=== PATIENT | female | born 1960 | race Hispanic/Latino ===

== ENCOUNTER 2018-12-20 10:25 | Inpatient (IN) | payer MEDICARE ==
[2018-12-20] MEDS ORDERED: GEODON IM PRN (14:37)
[2018-12-20] MEDS ORDERED: ZOFRAN IM PRN (14:38)
[2018-12-20] MEDS: ROXICODONE PO PRN ×2 (15:23→21:43)
[2018-12-20] MEDS: LEXAPRO PO SCH (15:24)
[2018-12-20 16:32] LABS: Basophils % (Auto) 0.4 % (0.0-1.8); Eosinophils % (Auto) 0.1 % (0.0-4.3); Hematocrit 48.1 % (30.3-42.9); Hemoglobin 16.2 gm/dl (10.1-14.3); Lymphocytes # (Auto) 1.6 K/mm3 (1.2-5.4); Lymphocytes % (Auto) 18.2 % (13.4-35.0); Mean Corpuscular HGB Conc 34 % (30-34); Mean Corpuscular Volume 89 fl (79-97); Monocytes # (Auto) 0.6 K/mm3 (0.0-0.8); Monocytes % (Auto) 7.3 % (0.0-7.3); Platelet Count 142 K/mm3 (140-440); Red Blood Count 5.39 M/mm3 (3.65-5.03); Red Cell Distribution Width 14.3 % (13.2-15.2)
[2018-12-20 16:52] LABS: Albumin 4.3 g/dL (3.9-5); Calcium 9.1 mg/dL (8.4-10.2)
[2018-12-20 17:06] LABS: Chol/HDL Ratio 2.93 %
[2018-12-20] MEDS: CATAPRES-TTS PATCH TD SCH ×2 (18:56→21:39)
[2018-12-20] MEDS ORDERED: DESYREL PO SCH (22:00)
[2018-12-21] MEDS: LEXAPRO PO SCH (10:22)
[2018-12-21] MEDS: ROXICODONE PO PRN (10:24)
--- NOTE | 2018-12-21 13:15 | History and Physical Report ---
GP History & Physical - History of Present Illness Date of admission: 12/20/18 Date of Examination: 12/21/18 Reason for Admission: Danger to self, Severe anxiety/depression Chief Complaint: Depressed, anxious and suicidal History of Present Illness: The patient is a 58yo disabled, female with history of MDD, Anxiety, Chronic pain and Fibromylgia. She was transferred from [facility] with c/o feeling very anxious, nervous and thoughts of suicide. In my interview with the patient today, she endorses feeling depressed and anxious, relates her feelings to chronic pain. She attends [facility], where she is prescribed Methadone 10mg bid, Percocet 5/325mg x 2 q6h and Clonazepam 0.5mg bid. She wants to continue on these medications. She denies hallucinations, paranoia or homicidal thoughts. Legal Status: Voluntary Patient Problems: Current Active Problems MDD (major depressive disorder), recurrent episode, severe (Acute) Reaction to Hospitalization: Accepting Medications and Allergies Allergies Allergy/AdvReac Type Severity Reaction Status Date / Time ciprofloxacin [From Cipro] Allergy Unknown Verified 12/20/18 00:47 NSAIDS (Non-Steroidal AdvReac Intermediate ABDOMINAL Verified 12/20/18 01:45 Anti-Inflamma PAIN butorphanol [From Stadol] AdvReac Unknown Verified 12/20/18 01:45 cephalexin [From Keflex] AdvReac STOMACH Verified 12/20/18 01:45 PAIN clarithromycin [From Biaxin] AdvReac PAIN Verified 12/20/18 01:45 desipramine AdvReac Vomiting Verified 12/20/18 01:45 droperidol [From Inapsine] AdvReac MUSCLE Verified 12/20/18 01:45 SPASM LOWER EXTREMITIES metoclopramide [From Reglan] AdvReac MUSCLE Verified 12/20/18 01:45 SPASMS milnacipran [From Savella] AdvReac MOOD Verified 12/20/18 01:45 ALTERATION morphine AdvReac Hives Verified 12/20/18 01:45 nalbuphine [From Nubain] AdvReac MUSCLE Verified 12/20/18 01:45 SPASMS nortriptyline AdvReac THOUGHTS Verified 12/20/18 01:45 OF SUICIDE pregabalin [From Lyrica] AdvReac MOOD Verified 12/20/18 01:45 ALTERATION prochlorperazine AdvReac MUSCLE Verified 12/20/18 01:45 [From Compazine] SPASMS tramadol AdvReac TREMORS Verified 12/20/18 01:45 ziprasidone [From Geodon] AdvReac MUSCLE Verified 12/20/18 01:45 SPASMS Home Medications Medication Instructions Recorded Confirmed Last Taken Type Escitalopram Oxalate [Lexapro] 20 mg PO HS 12/20/18 12/20/18 12/18/18 History 20 mg Klonopin 0.5 mg PO BID PRN 12/20/18 12/20/18 12/19/18 History 0.5mg Marinol 2.5 mg PO TID 12/20/18 12/20/18 12/20/18 History 2.5 Methadone 10 mg PO BID 12/20/18 12/20/18 12/19/18 History 10 mg Ondansetron (Nf) [Zofran TAB] 8 mg PO Q8HR PRN 12/20/18 12/20/18 12/20/18 History 8 mg oxyCODONE 1 tab PO QID PRN MDD 1 tab 12/20/18 12/20/18 12/19/18 History 1 tab traZODone 150 mg PO QHS 12/20/18 12/20/18 12/17/18 History 150 Active Meds: Active Medications Clonazepam (Klonopin) 0.5 mg PO BID [facility] Last Admin: 12/21/18 10:22 Dose: 0.5 mg Documented by: Clonidine HCl (Catapres-Tts Patch) 0.1 mg TD Sa [facility] Last Admin: 12/20/18 21:39 Dose: 0.1 mg Documented by: Escitalopram Oxalate (Lexapro) 20 mg PO QDAY [facility] Last Admin: 12/21/18 10:22 Dose: 20 mg Documented by: Hydroxyzine Pamoate (Vistaril) 50 mg PO Q6H PRN PRN Reason: Anxiety Ondansetron HCl (Zofran) 4 mg IM Q8H PRN PRN Reason: nausea Last Admin: 12/21/18 10:23 Dose: 4 mg Documented by: Oxycodone HCl (Roxicodone) 5 mg PO Q8H PRN PRN Reason: Pain, Moderate (4-6) Last Admin: 12/21/18 10:24 Dose: 5 mg Documented by: Trazodone HCl (Desyrel) 50 mg PO QHS [facility] Last Admin: 12/20/18 21:39 Dose: 50 mg Documented by: Ziprasidone (Geodon) 20 mg IM Q4H PRN PRN Reason: Agitation Substance History - Substance History Drug Use: none Hx Tobacco Use: No Alcohol Use: No Past psychiatric history - Past Medical History Past Medical History: other (Chronic pain) - past Psychiatric treatment and history Psych: Anxiety, Depression - Social History Social history: , Lives alone (disabled, has some college education, no legal problems and no gun access. ) Review of Systems All systems: negative Gastrointestinal: nausea Psychiatric: anxiety, suicidal ideation, depression Results - Results Labs/Vitals: Laboratory Last Values WBC 8.6 K/mm3 (4.5-11.0) 12/20/18 16:01 RBC 5.39 M/mm3 (3.65-5.03) H 12/20/18 16:01 Hgb 16.2 gm/dl (10.1-14.3) H 12/20/18 16:01 Hct 48.1 % (30.3-42.9) H 12/20/18 16:01 MCV 89 fl (79-97) 12/20/18 16:01 MCH 30 pg (28-32) 12/20/18 16:01 MCHC 34 % (30-34) 12/20/18 16:01 RDW 14.3 % (13.2-15.2) 12/20/18 16:01 Plt Count 142 K/mm3 (140-440) 12/20/18 16:01 Lymph % (Auto) 18.2 % (13.4-35.0) 12/20/18 16:01 Vance % (Auto) 7.3 % (0.0-7.3) 12/20/18 16:01 Eos % (Auto) 0.1 % (0.0-4.3) 12/20/18 16:01 Baso % (Auto) 0.4 % (0.0-1.8) 12/20/18 16:01 Lymph # 1.6 K/mm3 (1.2-5.4) 12/20/18 16:01 Vance # 0.6 K/mm3 (0.0-0.8) 12/20/18 16:01 Eos # 0.0 K/mm3 (0.0-0.4) 12/20/18 16:01 Baso # 0.0 K/mm3 (0.0-0.1) 12/20/18 16:01 Seg Neutrophils % 74.0 % (40.0-70.0) H 12/20/18 16:01 Seg Neutrophils # 6.4 K/mm3 (1.8-7.7) 12/20/18 16:01 Sodium 141 mmol/L (137-145) 12/20/18 16:01 Potassium 4.0 mmol/L (3.6-5.0) 12/20/18 16:01 Chloride 96.3 mmol/L (98-107) L 12/20/18 16:01 Carbon Dioxide 29 mmol/L (22-30) 12/20/18 16:01 Anion Gap 20 mmol/L 12/20/18 16:01 BUN 7 mg/dL (7-17) 12/20/18 16:01 Creatinine 1.0 mg/dL (0.7-1.2) 12/20/18 16:01 Estimated GFR 57 ml/min 12/20/18 16:01 BUN/Creatinine Ratio 7 % 12/20/18 16:01 Glucose 104 mg/dL (65-100) H 12/20/18 16:01 Calcium 9.1 mg/dL (8.4-10.2) 12/20/18 16:01 Total Bilirubin 0.40 mg/dL (0.1-1.2) 12/20/18 16:01 AST 25 units/L (5-40) 12/20/18 16:01 ALT 21 units/L (7-56) 12/20/18 16:01 Alkaline Phosphatase 156 units/L (35-129) H 12/20/18 16:01 Total Protein 8.0 g/dL (6.3-8.2) 12/20/18 16:01 Albumin 4.3 g/dL (3.9-5) 12/20/18 16:01 Albumin/Globulin Ratio 1.2 % 12/20/18 16:01 Triglycerides 161 mg/dL (2-149) H 12/20/18 16:01 Cholesterol 135 mg/dL (50-199) 12/20/18 16:01 LDL Cholesterol Direct 64 mg/dL (50-130) 12/20/18 16:01 HDL Cholesterol 46 mg/dL (40-59) 12/20/18 16:01 Cholesterol/HDL Ratio 2.93 % 12/20/18 16:01 Last Vital Signs Temp 98.7 F 12/21/18 08:15 Pulse 71 12/21/18 08:15 Resp 14 12/21/18 08:15 BP 153/102 12/21/18 08:15 Pulse Ox 94 12/21/18 08:15 Physical Examination - Constitutional Vitals: Vital Signs Temp Pulse Resp BP Pulse Ox 98.7 F 71 14 153/102 94 12/21/18 08:15 12/21/18 08:15 12/21/18 08:15 12/21/18 08:15 12/21/18 08:15 Temperature -Last 24 Hours Temperature 98.7 F Temperature 97.3 F General appearance: Present: no acute distress, well-nourished - EENT Eyes: Present: PERRL, EOM intact ENT: hearing intact, clear oral mucosa - Neck Neck: Present: supple, normal ROM - Respiratory Respiratory effort: normal Mental Status Exam - Vital signs Last Vital Signs Temp 98.7 F 12/21/18 08:15 Pulse 71 12/21/18 08:15 Resp 14 12/21/18 08:15 BP 153/102 12/21/18 08:15 Pulse Ox 94 12/21/18 08:15 - Exam Orientation: time, place, person Affect: depressed, anxious Mood: congruent with affect Thought Process: Intact Perceptions: none Speech: normal rate and pattern Concentration: focused Motor activity: restless Level of consciousness: alert Memory: Intact Sleep Symptoms: Difficulty Falling Asleep Interaction: cooperative Mini mental status exam(if necessary): 24-30 Assessment and Plan - Psychiatric problem (1) MDD (major depressive disorder), recurrent episode, severe Current Visit: Yes Status: Acute plan to address problem: Patient will be admitted for inpatient psychiatric evaluation, medication adjustment and close monitoring The patient's behavior, mood, sleep and appetite will be closely monitored. Patient will be enrolled in individual and group therapeutic sessions and encouraged to attend. Patient will be provided with a safe and structured environment. Patient's physical health needs will be addressed by the Hospitalist. Social Assessment will be completed and the Life Teacher will work with patient and family to ensure a suitable and safe disposition Medication adjustment will be made as clinically indicated The patient agreed on the treatment plan, understood the risk, benefit, alternative treatment, potential consequence of no treatment, and gave informed consent Physician Certification - Certification Statement Physician Certification Statement: This is an acknowledgement statement that VAUGHN HOOVER is a 58 year old F who requires inpatient psychiatric admission for treatment which could reasonably be expected to improve the patient's condition for Depression Estimated period of time patient will need to remain in the hospital: 7 days Plan for post-hospital care: Out-patient care
[2018-12-21] MEDS ORDERED: ZOFRAN ODT PO PRN (13:20)
[2018-12-21] MEDS: PERCOCET 5/325 PO PRN (17:03)
[2018-12-21] MEDS: VISTARIL PO PRN (17:03)
[2018-12-21] MEDS: DESYREL PO SCH (21:29)
[2018-12-21] MEDS: DOLOPHINE PO SCH (21:33)
[2018-12-21] MEDS ORDERED: NON-FORMULARY (Ondansetron (Nf) 8 MG) PO PRN (22:03)
[2018-12-21] MEDS ORDERED: KLONOPIN 0.5 MG PO PRN (22:03)
[2018-12-21] MEDS: COZAAR PO SCH (23:17)
[2018-12-22] MEDS: ZOFRAN ODT PO PRN ×2 (03:46→21:08)
--- NOTE | 2018-12-22 07:24 | Consultation ---
History of Present Illness - Reason for Consult Consult date: 12/21/18 Medical management Requesting physician: HALEY PINEDA - History of Present Illness The patient is a 58yo disabled, female with history of MDD, Anxiety, Chronic pain and Fibromylgia. She was transferred from [facility] with c/o feeling very anxious, nervous and thoughts of suicide. High BP for last 24 hours Not on any BP meds Past History Past Medical History: other (Chronic pain.Depression.,Anxiety) Past Surgical History: No surgical history Social history: , Lives alone (disabled, has some college education, no legal problems and no gun access. ) Family history: hypertension Medications and Allergies Allergies Allergy/AdvReac Type Severity Reaction Status Date / Time ciprofloxacin [From Cipro] Allergy Unknown Verified 12/20/18 00:47 NSAIDS (Non-Steroidal AdvReac Intermediate ABDOMINAL Verified 12/20/18 01:45 Anti-Inflamma PAIN butorphanol [From Stadol] AdvReac Unknown Verified 12/20/18 01:45 cephalexin [From Keflex] AdvReac STOMACH Verified 12/20/18 01:45 PAIN clarithromycin [From Biaxin] AdvReac PAIN Verified 12/20/18 01:45 desipramine AdvReac Vomiting Verified 12/20/18 01:45 droperidol [From Inapsine] AdvReac MUSCLE Verified 12/20/18 01:45 SPASM LOWER EXTREMITIES metoclopramide [From Reglan] AdvReac MUSCLE Verified 12/20/18 01:45 SPASMS milnacipran [From Savella] AdvReac MOOD Verified 12/20/18 01:45 ALTERATION morphine AdvReac Hives Verified 12/20/18 01:45 nalbuphine [From Nubain] AdvReac MUSCLE Verified 12/20/18 01:45 SPASMS nortriptyline AdvReac THOUGHTS Verified 12/20/18 01:45 OF SUICIDE pregabalin [From Lyrica] AdvReac MOOD Verified 12/20/18 01:45 ALTERATION prochlorperazine AdvReac MUSCLE Verified 12/20/18 01:45 [From Compazine] SPASMS tramadol AdvReac TREMORS Verified 12/20/18 01:45 ziprasidone [From Geodon] AdvReac MUSCLE Verified 12/20/18 01:45 SPASMS Home Medications Medication Instructions Recorded Confirmed Last Taken Type Escitalopram Oxalate [Lexapro] 20 mg PO HS 12/20/18 12/20/18 12/18/18 History 20 mg Klonopin 0.5 mg PO BID PRN 12/20/18 12/20/18 12/19/18 History 0.5mg Marinol 2.5 mg PO TID 12/20/18 12/20/18 12/20/18 History 2.5 Methadone 10 mg PO BID 12/20/18 12/20/18 12/19/18 History 10 mg Ondansetron (Nf) [Zofran TAB] 8 mg PO Q8HR PRN 12/20/18 12/20/18 12/20/18 History 8 mg oxyCODONE 1 tab PO QID PRN MDD 1 tab 12/20/18 12/20/18 12/19/18 History 1 tab traZODone 150 mg PO QHS 12/20/18 12/20/18 12/17/18 History 150 Active Meds: Active Medications Amlodipine Besylate (Norvasc) 5 mg PO QDAY [facility] Aspirin (Halfprin Ec) 81 mg PO QDAY [facility] Clonazepam (Klonopin) 0.5 mg PO BID [facility] Last Admin: 12/21/18 21:29 Dose: 0.5 mg Documented by: Clonazepam (Klonopin) 0.5 mg PO BID PRN PRN Reason: AGITATION Escitalopram Oxalate (Lexapro) 20 mg PO QHS [facility] Hydroxyzine Pamoate (Vistaril) 50 mg PO Q6H PRN PRN Reason: Anxiety Last Admin: 12/21/18 17:03 Dose: 50 mg Documented by: Losartan Potassium (Cozaar) 100 mg PO QDAY [facility] Last Admin: 12/21/18 23:17 Dose: 100 mg Documented by: Methadone HCl (Dolophine) 10 mg PO BID [facility] Last Admin: 12/21/18 21:33 Dose: 10 mg Documented by: Ondansetron HCl (Zofran Odt) 8 mg PO Q8H PRN PRN Reason: Nausea And Vomiting Last Admin: 12/22/18 03:46 Dose: 8 mg Documented by: Oxycodone/Acetaminophen (Percocet 5/325) 2 tab PO Q6H PRN PRN Reason: Pain, Moderate (4-6) Last Admin: 12/21/18 17:03 Dose: 2 tab Documented by: Trazodone HCl (Desyrel) 150 mg PO QHS [facility] Last Admin: 12/21/18 21:29 Dose: 150 mg Documented by: Review of Systems All systems: negative Musculoskeletal: other (Chronic pain) Exam - Constitutional Vitals: Temp Pulse Resp BP Pulse Ox 99 F 88 18 171/97 98 12/21/18 21:47 12/21/18 23:17 12/21/18 21:47 12/21/18 23:17 12/21/18 21:47 General appearance: Present: no acute distress, well-nourished - EENT Eyes: Present: PERRL ENT: hearing intact, clear oral mucosa - Neck Neck: Present: supple, normal ROM - Respiratory Respiratory effort: normal Respiratory: bilateral: CTA - Cardiovascular Heart Sounds: Present: S1 & S2. Absent: rub, click - Extremities Extremities: no ischemia, pulses intact, pulses symmetrical, No edema Peripheral Pulses: within normal limits - Abdominal General gastrointestinal: Present: soft, non-tender, non-distended, normal bowel sounds Female genitourinary: Present: normal - Integumentary Integumentary: Present: clear, warm, dry - Musculoskeletal Musculoskeletal: gait normal, strength equal bilaterally - Psychiatric Psychiatric: appropriate mood/affect, depressed - Neurologic Neurologic: CNII-XII intact, moves all extremities - Allied Health Allied health notes reviewed: nursing, case management Results - Labs CBC & Chem 7: 12/20/18 16:01 12/20/18 16:01 Labs: Abnormal lab results 12/21/18 Range/Units 16:53 POC Glucose 112 H (70-105) Assessment and Plan - Patient Problems (1) HTN (hypertension) Current Visit: Yes Status: Chronic Qualifiers: Hypertension type: essential hypertension Qualified Code(s): I10 - Essential (primary) hypertension Plan to address problem: New onset Initiated on Amlodipine and Losartan (2) MARIA ALEJANDRA (generalized anxiety disorder) Current Visit: Yes Status: Chronic Plan to address problem: Defer to Dr Pineda (3) MDD (major depressive disorder) Current Visit: Yes Status: Chronic Qualifiers: Active/Remission status: currently active Major depression episode severity: moderate Plan to address problem: As per Dr Pineda
[2018-12-22] MEDS: DOLOPHINE PO SCH ×2 (09:03→21:11)
[2018-12-22] MEDS: HALFPRIN EC PO SCH (09:03)
[2018-12-22] MEDS: COZAAR PO SCH (09:18)
[2018-12-22] MEDS: NORVASC PO SCH (09:18)
[2018-12-22] MEDS: PERCOCET 5/325 PO PRN (13:04)
[2018-12-22] MEDS: VISTARIL PO PRN (18:31)
[2018-12-22] MEDS: DESYREL PO SCH (21:10)
[2018-12-22] MEDS ORDERED: NON-FORMULARY (Escitalopram Oxalate [Lexapro] 20 MG) PO SCH (22:00)
[2018-12-22] MEDS ORDERED: LEXAPRO PO SCH (22:00)
[2018-12-23] MEDS: PERCOCET 5/325 PO PRN (07:15)
--- NOTE | 2018-12-23 07:58 | Progress Note ---
Subjective Date of service: 12/22/18 Principal diagnosis: Major depressive disorder Subjective Comment: Patient reports feeling better today. She does not want to come off Methadone, hence it was restarted last night. As she is back on Methadone for pain, she denies SI/HI/AVH/Paranoia. She is compliant with her medications and denies side effects. MSE Orientation: time, place, person Affect: Normal Mood: Improving Thought Process: Intact Perceptions: none Speech: normal rate and pattern Concentration: focused Motor activity: WNL Level of consciousness: alert Memory: Intact Sleep Symptoms: None Interaction: cooperative Objective - Criteria for Continued Treatment Criteria for Continued Treatment: Improving Level of Functioning, Stablizing Level of Functioning, Improving Emotional/Socia - Objective Observation Participation Level: Moderate Assessment and Plan - Patient Problems (1) MDD (major depressive disorder), recurrent episode, severe Current Visit: Yes Status: Acute Plan to address problem: Patient will be admitted for inpatient psychiatric evaluation, medication adjustment and close monitoring The patient's behavior, mood, sleep and appetite will be closely monitored. Patient will be enrolled in individual and group therapeutic sessions and encouraged to attend. Patient will be provided with a safe and structured environment. Patient's physical health needs will be addressed by the Hospitalist. Social Assessment will be completed and the Supervisor Beater Room will work with patient and family to ensure a suitable and safe disposition Medication adjustment will be made as clinically indicated The patient agreed on the treatment plan, understood the risk, benefit, alternative treatment, potential consequence of no treatment, and gave informed consent Medications and Allergies Allergies Allergy/AdvReac Type Severity Reaction Status Date / Time ciprofloxacin [From Cipro] Allergy Unknown Verified 12/20/18 00:47 NSAIDS (Non-Steroidal AdvReac Intermediate ABDOMINAL Verified 12/20/18 01:45 Anti-Inflamma PAIN butorphanol [From Stadol] AdvReac Unknown Verified 12/20/18 01:45 cephalexin [From Keflex] AdvReac STOMACH Verified 12/20/18 01:45 PAIN clarithromycin [From Biaxin] AdvReac PAIN Verified 12/20/18 01:45 desipramine AdvReac Vomiting Verified 12/20/18 01:45 droperidol [From Inapsine] AdvReac MUSCLE Verified 12/20/18 01:45 SPASM LOWER EXTREMITIES metoclopramide [From Reglan] AdvReac MUSCLE Verified 12/20/18 01:45 SPASMS milnacipran [From Savella] AdvReac MOOD Verified 12/20/18 01:45 ALTERATION morphine AdvReac Hives Verified 12/20/18 01:45 nalbuphine [From Nubain] AdvReac MUSCLE Verified 12/20/18 01:45 SPASMS nortriptyline AdvReac THOUGHTS Verified 12/20/18 01:45 OF SUICIDE pregabalin [From Lyrica] AdvReac MOOD Verified 12/20/18 01:45 ALTERATION prochlorperazine AdvReac MUSCLE Verified 12/20/18 01:45 [From Compazine] SPASMS tramadol AdvReac TREMORS Verified 12/20/18 01:45 ziprasidone [From Geodon] AdvReac MUSCLE Verified 12/20/18 01:45 SPASMS Home Medications Medication Instructions Recorded Confirmed Last Taken Type Escitalopram Oxalate [Lexapro] 20 mg PO HS 12/20/18 12/20/18 12/18/18 History 20 mg Klonopin 0.5 mg PO BID PRN 12/20/18 12/20/18 12/19/18 History 0.5mg Marinol 2.5 mg PO TID 12/20/18 12/20/18 12/20/18 History 2.5 Methadone 10 mg PO BID 12/20/18 12/20/18 12/19/18 History 10 mg Ondansetron (Nf) [Zofran TAB] 8 mg PO Q8HR PRN 12/20/18 12/20/18 12/20/18 History 8 mg oxyCODONE 1 tab PO QID PRN MDD 1 tab 12/20/18 12/20/18 12/19/18 History 1 tab traZODone 150 mg PO QHS 12/20/18 12/20/18 12/17/18 History 150 Active Meds: Active Medications Amlodipine Besylate (Norvasc) 5 mg PO QDAY [facility] Last Admin: 12/22/18 09:18 Dose: 5 mg Documented by: Aspirin (Halfprin Ec) 81 mg PO QDAY [facility] Last Admin: 12/22/18 09:03 Dose: 81 mg Documented by: Clonazepam (Klonopin) 0.5 mg PO BID [facility] Last Admin: 12/22/18 21:12 Dose: 0.5 mg Documented by: Clonazepam (Klonopin) 0.5 mg PO BID PRN PRN Reason: AGITATION Escitalopram Oxalate (Lexapro) 20 mg PO QHS [facility] Last Admin: 12/22/18 21:12 Dose: 20 mg Documented by: Hydroxyzine Pamoate (Vistaril) 50 mg PO Q6H PRN PRN Reason: Anxiety Last Admin: 12/22/18 18:31 Dose: 50 mg Documented by: Losartan Potassium (Cozaar) 100 mg PO QDAY [facility] Last Admin: 12/22/18 09:18 Dose: 100 mg Documented by: Methadone HCl (Dolophine) 10 mg PO BID [facility] Last Admin: 12/22/18 21:11 Dose: 10 mg Documented by: Ondansetron HCl (Zofran Odt) 8 mg PO Q8H PRN PRN Reason: Nausea And Vomiting Last Admin: 12/22/18 21:08 Dose: 8 mg Documented by: Oxycodone/Acetaminophen (Percocet 5/325) 2 tab PO Q6H PRN PRN Reason: Pain, Moderate (4-6) Last Admin: 12/23/18 07:15 Dose: 2 tab Documented by: Trazodone HCl (Desyrel) 150 mg PO QHS [facility] Last Admin: 12/22/18 21:10 Dose: 150 mg Documented by: Results - Results Labs/Vitals: Laboratory Last Values WBC 8.6 K/mm3 (4.5-11.0) 12/20/18 16:01 RBC 5.39 M/mm3 (3.65-5.03) H 12/20/18 16:01 Hgb 16.2 gm/dl (10.1-14.3) H 12/20/18 16:01 Hct 48.1 % (30.3-42.9) H 12/20/18 16:01 MCV 89 fl (79-97) 12/20/18 16:01 MCH 30 pg (28-32) 12/20/18 16:01 MCHC 34 % (30-34) 12/20/18 16:01 RDW 14.3 % (13.2-15.2) 12/20/18 16:01 Plt Count 142 K/mm3 (140-440) 12/20/18 16:01 Lymph % (Auto) 18.2 % (13.4-35.0) 12/20/18 16:01 [place]ayson % (Auto) 7.3 % (0.0-7.3) 12/20/18 16:01 Eos % (Auto) 0.1 % (0.0-4.3) 12/20/18 16:01 Baso % (Auto) 0.4 % (0.0-1.8) 12/20/18 16:01 Lymph # 1.6 K/mm3 (1.2-5.4) 12/20/18 16:01 [place]ayson # 0.6 K/mm3 (0.0-0.8) 12/20/18 16:01 Eos # 0.0 K/mm3 (0.0-0.4) 12/20/18 16:01 Baso # 0.0 K/mm3 (0.0-0.1) 12/20/18 16:01 Seg Neutrophils % 74.0 % (40.0-70.0) H 12/20/18 16:01 Seg Neutrophils # 6.4 K/mm3 (1.8-7.7) 12/20/18 16:01 Sodium 141 mmol/L (137-145) 12/20/18 16:01 Potassium 4.0 mmol/L (3.6-5.0) 12/20/18 16:01 Chloride 96.3 mmol/L (98-107) L 12/20/18 16:01 Carbon Dioxide 29 mmol/L (22-30) 12/20/18 16:01 Anion Gap 20 mmol/L 12/20/18 16:01 BUN 7 mg/dL (7-17) 12/20/18 16:01 Creatinine 1.0 mg/dL (0.7-1.2) 12/20/18 16:01 Estimated GFR 57 ml/min 12/20/18 16:01 BUN/Creatinine Ratio 7 % 12/20/18 16:01 Glucose 104 mg/dL (65-100) H 12/20/18 16:01 POC Glucose 112 (70-105) H 12/21/18 16:53 Calcium 9.1 mg/dL (8.4-10.2) 12/20/18 16:01 Total Bilirubin 0.40 mg/dL (0.1-1.2) 12/20/18 16:01 AST 25 units/L (5-40) 12/20/18 16:01 ALT 21 units/L (7-56) 12/20/18 16:01 Alkaline Phosphatase 156 units/L (35-129) H 12/20/18 16:01 Total Protein 8.0 g/dL (6.3-8.2) 12/20/18 16:01 Albumin 4.3 g/dL (3.9-5) 12/20/18 16:01 Albumin/Globulin Ratio 1.2 % 12/20/18 16:01 Triglycerides 161 mg/dL (2-149) H 12/20/18 16:01 Cholesterol 135 mg/dL (50-199) 12/20/18 16:01 LDL Cholesterol Direct 64 mg/dL (50-130) 12/20/18 16:01 HDL Cholesterol 46 mg/dL (40-59) 12/20/18 16:01 Cholesterol/HDL Ratio 2.93 % 12/20/18 16:01 Last Vital Signs Temp 98.3 F 12/22/18 22:00 Pulse 69 12/22/18 22:00 Resp 18 12/23/18 07:15 BP 132/79 12/22/18 22:00 Pulse Ox 95 12/22/18 22:00
[2018-12-23] MEDS: DOLOPHINE PO SCH (09:31)
[2018-12-23] MEDS: ZOFRAN ODT PO PRN (09:31)
[2018-12-23] MEDS: NORVASC PO SCH (09:32)
[2018-12-23] MEDS: COZAAR PO SCH (09:32)
[2018-12-23 09:33] VITALS: BP 135/90
[2018-12-23] MEDS: HALFPRIN EC PO SCH (09:33)
--- NOTE | 2018-12-23 10:35 | Discharge Summary ---
Providers - Providers Date of Admission: 12/20/18 10:43 Date of discharge: 12/23/18 Attending physician: HALEY PINEDA MD 12/21/18 08:06 Consult to Physician [CONS] Routine Comment: Consulting Provider: GIAN DONALDSON Physician Instructions: Reason For Exam: New admission H&P Hospitalization Reason for admission: Danger to self, Severe anxiety/depression Condition: Stable Disposition: DC-01 TO HOME OR SELFCARE Allergies/Adverse Reactions: Allergies ciprofloxacin [From Cipro] Allergy (Verified 12/20/18 00:47) Unknown NSAIDS (Non-Steroidal Anti-Inflamma Adverse Reaction (Intermediate, Verified 12/20/18 01:45) ABDOMINAL PAIN butorphanol [From Stadol] Adverse Reaction (Verified 12/20/18 01:45) Unknown cephalexin [From Keflex] Adverse Reaction (Verified 12/20/18 01:45) STOMACH PAIN clarithromycin [From Biaxin] Adverse Reaction (Verified 12/20/18 01:45) PAIN desipramine Adverse Reaction (Verified 12/20/18 01:45) Vomiting droperidol [From Inapsine] Adverse Reaction (Verified 12/20/18 01:45) MUSCLE SPASM LOWER EXTREMITIES metoclopramide [From Reglan] Adverse Reaction (Verified 12/20/18 01:45) MUSCLE SPASMS milnacipran [From Savella] Adverse Reaction (Verified 12/20/18 01:45) MOOD ALTERATION morphine Adverse Reaction (Verified 12/20/18 01:45) Hives nalbuphine [From Nubain] Adverse Reaction (Verified 12/20/18 01:45) MUSCLE SPASMS nortriptyline Adverse Reaction (Verified 12/20/18 01:45) THOUGHTS OF SUICIDE pregabalin [From Lyrica] Adverse Reaction (Verified 12/20/18 01:45) MOOD ALTERATION prochlorperazine [From Compazine] Adverse Reaction (Verified 12/20/18 01:45) MUSCLE SPASMS tramadol Adverse Reaction (Verified 12/20/18 01:45) TREMORS ziprasidone [From Geodon] Adverse Reaction (Verified 12/20/18 01:45) MUSCLE SPASMS Vital Signs: Last Vital Signs Temp 98.3 F 12/22/18 22:00 Pulse 61 12/23/18 09:32 Resp 18 12/23/18 07:15 BP 135/90 12/23/18 09:32 Pulse Ox 95 12/22/18 22:00 Last Lab: Laboratory Last Values WBC 8.6 K/mm3 (4.5-11.0) 12/20/18 16:01 RBC 5.39 M/mm3 (3.65-5.03) H 12/20/18 16:01 Hgb 16.2 gm/dl (10.1-14.3) H 12/20/18 16:01 Hct 48.1 % (30.3-42.9) H 12/20/18 16:01 MCV 89 fl (79-97) 12/20/18 16:01 MCH 30 pg (28-32) 12/20/18 16:01 MCHC 34 % (30-34) 12/20/18 16:01 RDW 14.3 % (13.2-15.2) 12/20/18 16:01 Plt Count 142 K/mm3 (140-440) 12/20/18 16:01 Lymph % (Auto) 18.2 % (13.4-35.0) 12/20/18 16:01 [place] % (Auto) 7.3 % (0.0-7.3) 12/20/18 16:01 Eos % (Auto) 0.1 % (0.0-4.3) 12/20/18 16:01 Baso % (Auto) 0.4 % (0.0-1.8) 12/20/18 16:01 Lymph # 1.6 K/mm3 (1.2-5.4) 12/20/18 16:01 [place] # 0.6 K/mm3 (0.0-0.8) 12/20/18 16:01 Eos # 0.0 K/mm3 (0.0-0.4) 12/20/18 16:01 Baso # 0.0 K/mm3 (0.0-0.1) 12/20/18 16:01 Seg Neutrophils % 74.0 % (40.0-70.0) H 12/20/18 16:01 Seg Neutrophils # 6.4 K/mm3 (1.8-7.7) 12/20/18 16:01 Sodium 141 mmol/L (137-145) 12/20/18 16:01 Potassium 4.0 mmol/L (3.6-5.0) 12/20/18 16:01 Chloride 96.3 mmol/L (98-107) L 12/20/18 16:01 Carbon Dioxide 29 mmol/L (22-30) 12/20/18 16:01 Anion Gap 20 mmol/L 12/20/18 16:01 BUN 7 mg/dL (7-17) 12/20/18 16:01 Creatinine 1.0 mg/dL (0.7-1.2) 12/20/18 16:01 Estimated GFR 57 ml/min 12/20/18 16:01 BUN/Creatinine Ratio 7 % 12/20/18 16:01 Glucose 104 mg/dL (65-100) H 12/20/18 16:01 POC Glucose 112 (70-105) H 12/21/18 16:53 Calcium 9.1 mg/dL (8.4-10.2) 12/20/18 16:01 Total Bilirubin 0.40 mg/dL (0.1-1.2) 12/20/18 16:01 AST 25 units/L (5-40) 12/20/18 16:01 ALT 21 units/L (7-56) 12/20/18 16:01 Alkaline Phosphatase 156 units/L (35-129) H 12/20/18 16:01 Total Protein 8.0 g/dL (6.3-8.2) 12/20/18 16:01 Albumin 4.3 g/dL (3.9-5) 12/20/18 16:01 Albumin/Globulin Ratio 1.2 % 12/20/18 16:01 Triglycerides 161 mg/dL (2-149) H 12/20/18 16:01 Cholesterol 135 mg/dL (50-199) 12/20/18 16:01 LDL Cholesterol Direct 64 mg/dL (50-130) 12/20/18 16:01 HDL Cholesterol 46 mg/dL (40-59) 12/20/18 16:01 Cholesterol/HDL Ratio 2.93 % 12/20/18 16:01 - Discharge Diagnoses (1) MDD (major depressive disorder), recurrent episode, severe Status: Acute Core Measure Documentation - Palliative Care Palliative Care/ Comfort Measures: Not Applicable - Core Measures Any of the following diagnoses?: none Exam - Constitutional Vitals: Temp Pulse Resp BP Pulse Ox 98.3 F 61 18 135/90 95 12/22/18 22:00 12/23/18 09:32 12/23/18 07:15 12/23/18 09:32 12/22/18 22:00 General appearance: Present: no acute distress, well-nourished - EENT Eyes: Present: PERRL, EOM intact ENT: hearing intact, clear oral mucosa - Neck Neck: Present: supple, normal ROM - Respiratory Respiratory effort: normal Plan Activity: advance as tolerated Weight Bearing Status: Weight Bear as Tolerated Care Plan Goals: Maintain good and stable mood Plan of Treatment: Take medications as prescribed Health Concerns: Hypertension Assessment: Major depressive disorder Follow up with: JOSEPH JOSÉ MD [Other] - 7 Days Prescriptions: Losartan [Cozaar] 100 mg PO QDAY #30 tablet Aspirin EC [Halfprin EC] 81 mg PO QDAY #30 tablet amLODIPine [Norvasc] 5 mg PO QDAY #14 tablet hydrOXYzine PAMOATE [Vistaril] 50 mg PO Q6H PRN #60 capsule PRN Reason: Anxiety
== END 2018-12-23 13:52 | disposition home or self-care (01) | DRG 885 ==
LOC: EDSTATUS 10:29 → 5A 10:43
PROVIDERS: ADMIT Psychiatry & Neurology Psychiatry; ATTEND Psychiatry & Neurology Psychiatry
DX: F33.2 Major depressive disorder, recurrent severe without psychotic features (principal); I10 Essential (primary) hypertension; G89.29 Other chronic pain; M79.7 Fibromyalgia; F41.1 Generalized anxiety disorder; Z82.49 Family history of ischemic heart disease and other diseases of the circulatory system; Z88.5 Allergy status to narcotic agent; Z79.899 Other long term (current) drug therapy
CPT/HCPCS: 36415; 80053; 80061; 82962; 85025; G0378; J2405; Q0162; Q0177